=== PATIENT | female | born 1985 | race Caucasian/White ===

== ENCOUNTER 2024-07-06 06:58 | Day surgery (SDC) | payer OTHER, SELFPAY ==
[2024-07-06] VITALS (9 sets, daily range): BP systolic 102–122; BP diastolic 67–87; PULSE 51–75; RESP 10–16; TEMP 36.3–36.6; O2SAT 96–100; BMI 23.4
--- NOTE | 2024-07-06 | EMB_PTH ---
PATIENT: HEATHER SHARMA LOC: [facility] [place] U[place][id number] AGE/SX: 39/F ROOM: RE07/06/[address]: Dr. Grace Deras DO : 1985 BED: DIS: 07/06/2024 SPEC #: [id number] RECD: 07/06/24 13:22 STATUS: NELLI REHeavenly #: [id number] NIKO: 07/06/24 00:[address]: Grace Deras DEPT: SURGICAL PATHOLOGY RECD BY: Atul Obregon ENTERED: 07/06/24 13:22 SP TYPE: ENDOM BX/C LUCÍA DR: No Primary Care Phys Tissues: Endometrium, NOS Procedures: Surgery Specimen Level IV HEADER OPERATION: Hysteroscopy, D&C PRE-OP DIAGNOSIS: Menorrhagia, endometrial polyp TISSUE SUBMITTED: Endometrial curettings MICROSCOPIC DIAGNOSIS Endometrial biopsy: Secretory endometrium. 07/07/2024 MICROSCOPIC DESCRIPTION Slides are reviewed. GROSS DESCRIPTION Received in fixative is one container labeled with the patient's name and designated Endometrial curettings. The specimen consists of multiple irregular fragments of hemorrhagic soft tissue that in aggregate measure 3 x 2.5 x 0.3 cm. The specimen is totally submitted in one cassette. 07/06/2024 TC:4 CPT:21142
[2024-07-06 07:33] LABS: Internal QC Validated? YES +Cl - CLEAR BKGD; Pregnancy, Urine Negative Negative
[2024-07-06 07:55] LABS: Hematocrit 39.8 % (37-47); Hemoglobin 13.3 g/dL (12.0-15.0); Mean Corp Hgb Conc 33.4 g/dL (32-36); Mean Corpuscular Hgb 31.1 pg (27.0-32.0); Mean Platelet Vol. 10.9 fl (6.2-12.0); Platelet Count 194 K/mm3 (150-450); RBC Distribution Width CV 12.6 % (11.6-14.6); RBC Distribution Width SD 43.1 fl (35.1-43.9); Red Blood Count 4.28 M/mm3 (4.2-5.4); White Blood Count 7.2 K/mm3 (4.4-11.0)
--- NOTE | 2024-07-06 08:21 | PCM.PRE.AN2 ---
ASA Classification* ASA Classification ASA Classification: 2 Assessment & Plan Anesthesia* Anesthesia Assessment Anesthesia Assessment: Discussed sedation and/or anesthesia options, risks, benefits, and alternatives with patient/parents/legal guardian/POA. Questions invited. The patient/parents/legal guardian/POA seems to understand and agrees to proceed with anesthesia plan. Reviewed the physical assessment, medical history, allergy history and patient home medications list prior to surgery/procedure/anesthetic and documented any changes. Performed airway and anesthesia risk assessments. Anesthesia Type Anesthesia Type: MAC History Source History Obtained from:: Patient and Chart Anesthesia Focused Assessment* Temperature: 97.9 F Pulse Rate: 52 Blood Pressure: 122/83 Respiratory Rate: 16 Pulse Ox: 100 Oxygen Delivery Method: Room Air Airway Assessment Mouth opens: >3 cm Mallampati Score: I Teeth Condition: Caps/Crowns (Patient has several crowns. 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 When Was Last Pacemaker Check QUESTION #4 FULL TEXT: You/Your Family Experience fever (hyperthermia) with Anesthesia Bradycardia. Last Oral Intake Last Oral intake: Last Oral Intake NPO since 23:30 07/06/24 07:31 Meds taken in AM with sips of No 07/06/24 07:31 water? Meds patient instructed to take am of surgery PONV PONV - salesperson china and glassware: PONV - salesperson china and glassware Female Yes 06/22/24 11:18 HX of Motion Sickness No 06/22/24 11:18 HX of N/V After Surgery No 06/22/24 11:18 Non-Smoker Yes 06/22/24 11:18 Duration of Surgery greater No 06/22/24 11:18 than 60 minutes Number of Risk Factors 2 06/22/24 11:18 PONV Score Moderate Risk 06/22/24 11:18 Height & Weight Height & Weight: Anesthesia: Height & Weight Height 5 ft 8 in 07/06/24 07:31 Weight: 70 kg 07/06/24 07:31 Body Mass Index (BMI) 23.4 07/06/24 07:31 Respiratory Assessment Respiratory Assessment - salesperson china and glassware: Respiratory Tract Infection Hx - salesperson china and glassware Hx Respiratory Tract Infection No 06/22/24 11:18 STOP Sleep Apnea STOP Sleep Apnea - salesperson china and glassware: STOP Sleep Apnea - salesperson china and glassware Hx Hypertension Yes: AFTER CHILDBIRTH 12 YRS 06/22/24 11:18 AGO Hx Sleep Apnea No 06/22/24 11:18 CPAP BIPAP Do you snore loudly (louder No 06/22/24 11:18 than talking or can be heard Do you often feel tired/ No 06/22/24 11:18 fatigued/ sleepy during daytime? Has anyone observed you stop No 06/22/24 11:18 breathing during sleep? STOP Results Negative 06/22/24 11:18 QUESTION #5 FULL TEXT : Do you snore loudly (louder than talking or can be heard through closed doors)? 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 Specify any problems Hx of Preganancy in last 3 No 06/22/24 11:18 Months Nurse Filling Out Transfusion DSCHRIBER 06/22/24 11:18 & Questions: Date: 06/22/24 06/22/24 11:18 Time: 11:19 06/22/24 11:18 Patient unable to answer at this time (ie. confused, unrespo /Reproduction History /Reproductive History - salesperson china and glassware: /Reproductive Hx- salesperson china and glassware Hx Now No 06/22/24 11:18 Gestational Age (in weeks): EDC: Hx Hx Para Hx Section SAB No 06/22/24 11:18 PFSH Medical History PONV (postoperative nausea and vomiting) Cancer Anemia History of ulceration Non-smoker Hypertension Home Medications ?Medication ?Instructions ?Recorded ?Last Taken ?Type ferrous sulfate 325 mg (65 mg 325 mg PO DAILY 06/22/24 Unknown History iron) tablet (iron) ibuprofen 200 mg tablet (Advil) 200 mg PO Q8H PRN pain 06/22/24 Unknown History multivitamin (Daily Multi-Vitamin 1 tab PO DAILY 06/22/24 Unknown History tablet) Allergy/AdvReac Type Severity Reaction Status Date / Time azithromycin (From Zithromax) Allergy Intermediate Hives Verified 06/22/24 11:16 doxycycline AdvReac Intermediate Other Verified 06/22/24 11:16 Surgical History History of mastopexy Hx of foot surgery Hx of tonsillectomy Hx of rhinoplasty Social History Smoking Status: Never smoker Review of Systems (Anesthesia) ROS Narrative System reviewed and no additional complaints, except as documented.
[2024-07-06] MEDS: Lidocaine 1% /Epi 1:100 (20ml) 20 ML Vial (08:54)
--- NOTE | 2024-07-06 09:08 | PCM.DC ---
Discharge Instructions Diet Discharge Diet: No restrictions DC O2, CPAP, BIPAP needs Home O2 Discharge instructions: No Dressing / Incision Discharge Activity: May Drive (once you are more than 24 hours out from surgery) and May Shower (once you are more than 24 hours out from surgery) May resume sexual activity in: 1 week (nothing in the vagina and no soaking in water for 1 week) Ice area for (Minutes): 15 Weight Bearing Status: Weight bearing as tolerated Lifting Restrictions: none Dressing / Incision Call your doctor if you observe: Fever of 101 or Higher, Coldness, Increased Pain, Numbness or Tingling, Inability to urinate, Inability to have a bowel movement, Using more than 1 pad per hour, Shortness of breath, Dizziness, Swelling in the ankles, Chest pain, Increased palpitations (irregular heartbeat), Calf discomfort and Uncontrolled pain Cleanse incision/area with: Soap & Water Follow Up Care Please Follow Up With: Grace Deras DO When: 1-2 weeks post op Test Results: Test results from this visit will be discussed in further detail at your follow-up appointment, if applicable. Discharge Plan Admission Primary Reason for Your Visit: surgery Attending Provider: Grace Deras Primary Care Provider: Care Physician,No Primary Instructions Print Language: Citizen Of [place] Discharge Orders/Prescriptions Prescriptions: Continued multivitamin [Daily Multi-Vitamin] Tablet 1 tab PO DAILY ferrous sulfate [iron] 325 mg (65 mg iron) tablet 325 mg PO DAILY ibuprofen [Advil] 200 mg tablet 200 mg PO Q8H PRN (Reason: pain) Disposition Disposition (needs filled in before D/C Order can be placed): Home, Self Care
--- NOTE | 2024-07-06 09:12 | PCM.OPRPT ---
Problems Associated Problem List Diagnoses (1) Menorrhagia with regular cycle: Operative Report (Standard) Operative Information Date of Procedure: 07/06/24 Pre-Operative Diagnosis: Menorrhagia, endometrial polyp on pelvic ultrasound Post-Operative Diagnosis: Menorrhagia Surgery/Procedure Performed: Hysteroscopy D&C road oiler: No Type of Anesthesia: MAC RN Documented Start/Stop Times: Operation Date: 07/06/24 08:35 Case Time Into Pre-Op 07/06/24 07:10 Out of Pre-Op 07/06/24 08:34 Anesthesia Start 07/06/24 08:35 Into Room 07/06/24 08:35 Procedure Start 07/06/24 08:51 Procedure End 07/06/24 09:05 Anesthesia End 07/06/24 09:10 Out of Room 07/06/24 09:10 Into Recovery 07/06/24 09:13 Into Phase II Recovery 07/06/24 09:32 Out of Recovery 07/06/24 09:32 Procedure Start Time: 08:51 Procedure Stop Time: 09:05 Select all DRAINS/GRAFTS/IMPLANTS that apply: None Estimated Blood Loss: < 20 mL Fluids Replaced: 250 mL fluid deficit Specimen collected: Yes Description of specimen(s) removed: Endometrial curretings Description of surgery: Patient was take to the OR where MAC anesthesia was induced. She was prepped and draped in dorsal lithotomy position using yellow fin stirrups. A weighted speculum was placed in the vagina to expose the cervix. The anterior lip of the cervix was grasped with a single tooth tenaculum, and the cervix was serially dilated to accommodate the hysteroscope. The hysteroscope was advanced into the uterus and the uterus was distended with normal saline. The uterine cavity was normal appearing and bilateral tubal ostia were visualized. There were no polyps or lesions. The endocervical canal was normal appearing without polyps or lesions. The hysteroscope was removed. A sharp curettage was performed and the endometrial curettings were sent to pathology for review. All instruments were removed from the vagina. Bleeding was scant. A vaginal sweep performed. Instrument and sponge counts were correct. The patient was taken to the recovery room in good condition. Surgical Findings: Normal appearing uterine cavity and endocervical canal No polyps or lesions Complications Complications: No Admit VTE Documentation VTE Present on Admission: No VTE Mechan Device Prophylaxis: SCD's
--- NOTE | 2024-07-06 09:15 | PCM.POST.ANE ---
Anesthesia: Postop Eval I Current Vital Signs Temperature: 97.4 F Pulse Rate: 61 Blood Pressure: 110/70 Respiratory Rate: 10 Pulse Ox: 96 Oxygen Delivery Method: Room Air Assessment Airway patent: Yes Spontaneous unlabored respirations: Yes Mental status: Calm and Asleep nausea: No Vomiting: No Anesthesia Complication: No Fluid Hydration Crystalloid volume administer (ml): 10 Total IV fluid infused: 10 Progress Note Anesthesia document: Postop Eval 1 completed: Yes
--- NOTE | 2024-07-06 18:48 | POSTOPAN2_ITS ---
Anesthesia Postop Eval I Sum Postop Eval Completion status Anesthesia document: Postop Eval 1 completed: Yes Anesthesia Postop Eval I Summary Anesthesia Postop Eval I Summary: Anesthesia Postop Eval I: Assessment Summary Airway patent Yes 07/06/24 09:16 SCALE [email or web address] Spontaneous unlabored Yes 07/06/24 09:16 SCALE [email or web address] respirations Mental status Calm,Asleep 07/06/24 09:16 SCALE [email or web address] nausea No 07/06/24 09:16 SCALE [email or web address].[email or web address] Vomiting No 07/06/24 09:16 SCALE [email or web address].[email or web address] Anesthesia Postop Eval I: Fluid Summary Crystalloid volume administer 10 07/06/24 09:16 SCALE [email or web address].[email or web address] (ml) Colloids volume administered ( ml) Blood Product volume administered (ml) Total IV fluid infused 10 07/06/24 09:16 SCALE [email or web address].[email or web address] Anesthesia Postop Eval I: Summary Notes Anesthesia Complication No 07/06/24 09:16 SCALE [email or web address].[email or web address] Anesthesia Complication Comment: Post-operative progress note Anesthesia: Postop Eval II Evaluation Mental status: Awake and Calm Pain Level: 1 nausea: No Vomiting: No Complications Anesthesia Complication: No
--- NOTE | 2024-07-06 18:48 | PCM.POSTANE2 ---
Anesthesia Postop Eval I Sum Postop Eval Completion status Anesthesia document: Postop Eval 1 completed: Yes Anesthesia Postop Eval I Summary Anesthesia Postop Eval I Summary: Anesthesia Postop Eval I: Assessment Summary Airway patent Yes 07/06/24 09:16 PRODUCTION SUPPORT [email or web address].[email or web address] Spontaneous unlabored Yes 07/06/24 09:16 PRODUCTION SUPPORT ENGINEER.GDOTT respirations Mental status Calm,Asleep 07/06/24 09:16 PRODUCTION SUPPORT ENGINEER.GDOTT nausea No 07/06/24 09:16 PRODUCTION SUPPORT ENGINEER.GDOTT Vomiting No 07/06/24 09:16 PRODUCTION SUPPORT ENGINEER.GDOTT Anesthesia Postop Eval I: Fluid Summary Crystalloid volume administer 10 07/06/24 09:16 PRODUCTION SUPPORT ENGINEER.GDOTT (ml) Colloids volume administered ( ml) Blood Product volume administered (ml) Total IV fluid infused 10 07/06/24 09:16 PRODUCTION SUPPORT ENGINEER.GDOTT Anesthesia Postop Eval I: Summary Notes Anesthesia Complication No 07/06/24 09:16 PRODUCTION SUPPORT ENGINEER.GDOTT Anesthesia Complication Comment: Post-operative progress note Anesthesia: Postop Eval II Evaluation Mental status: Awake and Calm Pain Level: 1 nausea: No Vomiting: No Complications Anesthesia Complication: No
== END 2024-07-06 10:23 | disposition home or self-care (01) ==
LOC: SDC 07:04 → AC 07:05
PROVIDERS: Anesthesiology; Referring Provider Obstetrics & Gynecology; Visit Provider Obstetrics & Gynecology
PROC: 0UB98ZZ Excision of Uterus, Via Natural or Artificial Opening Endoscopic (ICD-10-PCS; CPT 58558; principal; 2024-07-06 08:20)
DX: N92.0 Excessive and frequent menstruation with regular cycle (principal)
CPT/HCPCS: 58558; 00952; 81025; 85027; 86850; 86900; 86901; 88305; A4216; J2405